=== PATIENT | female | born 2000 | race African-American/Black ===

== ENCOUNTER 2023-10-06 21:32 | Emergency (ER) | payer OTHER ==
[2023-10-06] MEDS ORDERED: diphenhydrAMINE HCL 25 MG CAPSULE (FP) PO ONE (21:37)
[2023-10-06] MEDS ORDERED: DEXAMETHASONE 4 MG TABLET (FP) PO ONE (21:37)
[2023-10-06 21:47] VITALS: BP 138/79; PULSE 130; RESP 18; TEMP 99.6; BMI 42.5
[2023-10-06] MEDS ORDERED: DEXAMETHASONE 4 MG TABLET (FP) ONE (23:07)
[2023-10-06] MEDS: DEXAMETHASONE 4 MG TABLET (FP) PO ONE (23:09)
== END 2023-10-06 23:40 | disposition home or self-care (01) ==
LOC: FER 21:32
DX: T78.01XA Anaphylactic reaction due to peanuts, initial encounter (principal); Z91.010 Allergy to peanuts
CPT/HCPCS: 99283-25